=== PATIENT | male | born 1950 | race Caucasian/White ===

== ENCOUNTER 2024-05-20 14:10 | Inpatient (IN) | payer MEDICARE, OTHER ==
[~2024-05-20] VITALS: Ht 172.7 cm; Wt 77.1 kg
[2024-05-20 14:37] LABS: BASOPHILS # (AUTO) 0.1 K/UL (0.0-0.2); EOSINOPHILS # (AUTO) 0.4 K/uL (0.0-0.7); EOSINOPHILS % (AUTO) 5.1 % (0.0-7.0); HEMATOCRIT 34.3 % (36.7-47.1); HEMOGLOBIN 11.1 g/dL (12.5-16.3); LYMPHOCYTES # (AUTO) 1.1 K/uL (0.8-4.8); LYMPHOCYTES % (AUTO) 14.2 % (20.5-51.5); MEAN CORPUSCULAR HEMOGLOBIN 26.8 uug (23.8-33.4); MEAN CORPUSCULAR HGB CONC 32 g/dL (32.5-36.3); MEAN CORPUSCULAR VOLUME 83.2 fL (73.0-96.2); MONOCYTES # (AUTO) 0.7 K/uL (0.1-1.30); MONOCYTES % (AUTO) 9.4 % (0.0-11.0); NEUTROPHILS # (AUTO) 5.3 K/uL (1.8-8.9); NEUTROPHILS % (AUTO) 70.3 % (38.5-71.5); PLATELET COUNT (AUTO) 245 K/uL (152-348); RED BLOOD CELL COUNT(AUTO) 4.13 MIL/uL (4.06-5.63); RED CELL DISTRIBUTION WIDTH 16.9 % (12.1-16.2); WHITE BLOOD COUNT (AUTO) 7.5 K/uL (3.6-10.2)
[2024-05-20 14:48] LABS: DIFFERENTIAL COMMENT 1
[2024-05-20 14:50] LABS: CALCIUM 8.3 mg/dL (8.5-10.1); CARBON DIOXIDE 29 mmol/L (21-32); CHLORIDE 99 mmol/L (98-107); GLUCOSE 168 mg/dL (74-106); SODIUM SERUM 137 mmol/L (136-145); UREA NITROGEN, BLOOD 19 mg/dL (7-18)
[2024-05-20 14:56] LABS: ALANINE AMINOTRANSFERASE 17 U/L (16-63); ALBUMIN 2.9 g/dL (3.4-5.0); ALKALINE PHOSPHATASE 109 U/L (50-136); ASPARTATE AMINOTRANSFERASE 6 U/L (15-37); BILIRUBIN,DIRECT 0.2 mg/dL (0.0-0.2); BILIRUBIN,TOTAL 0.5 mg/dL (0.2-1.0); TOTAL PROTEIN, SERUM 6.4 g/dL (6.4-8.2)
[2024-05-20] MEDS ORDERED: FERR-56 PO (15:26)
[2024-05-20] MEDS ORDERED: FESO8TAB PO (15:26)
[2024-05-20] MEDS ORDERED: LINA5TAB PO (15:26)
[2024-05-20] MEDS ORDERED: FLUT1BLS15 INH (15:26)
[2024-05-20] MEDS ORDERED: METO-357 PO (15:26)
[2024-05-20] MEDS ORDERED: GABA-532 PO (15:26)
[2024-05-20] MEDS ORDERED: GLIM4TAB37 PO (15:26)
[2024-05-20] MEDS ORDERED: LEVO150T8 PO (15:26)
[2024-05-20] MEDS ORDERED: OMEP40CA21 PO (15:26)
[2024-05-20] MEDS ORDERED: TERA2CAP4 PO (15:26)
[2024-05-20] MEDS ORDERED: ALLO100T56 PO (15:26)
[2024-05-20] MEDS ORDERED: SODI10PO PO (15:26)
[2024-05-20] MEDS ORDERED: HYDR-3972 PO (15:26)
[2024-05-20] MEDS ORDERED: INSU100V10 SQ (15:26)
[2024-05-20] MEDS ORDERED: APIX2.5T PO (15:26)
[2024-05-20] MEDS ORDERED: AMLO-212 PO (15:26)
[2024-05-20] MEDS ORDERED: BUPR150T10 PO (15:26)
[2024-05-20] MEDS ORDERED: SERT100T PO (15:26)
[2024-05-20] MEDS: hydrALAZINE HCL 20 MG/1 ML VIAL IV ONE (16:50)
[2024-05-20] MEDS ORDERED: ONDANSETRON 4 MG/2 ML VIAL IV PRN (20:30)
[2024-05-20] MEDS ORDERED: ACETAMINOPHEN 325 MG TABLET PO PRN (20:30)
[2024-05-20] MEDS ORDERED: HYDROCODONE/APAP 5-325MG TABLET PO PRN (20:30)
[2024-05-20] MEDS ORDERED: TERAZOSIN 1 MG CAPSULE ONE (22:02)
[2024-05-20] MEDS ORDERED: METOPROLOL TARTRATE 50 MG TABLET ONE (22:02)
[2024-05-20] MEDS ORDERED: DOCUSATE SODIUM 100 MG CAPSULE PO ONE (22:02)
[2024-05-20] MEDS: METOPROLOL TARTRATE 50 MG TABLET PO SCH (22:09)
[2024-05-20] MEDS: GABAPENTIN 100 MG CAPSULE PO SCH (22:09)
[2024-05-20] MEDS: DOCUSATE SODIUM 100 MG CAPSULE PO SCH (22:09)
[2024-05-20] MEDS: TERAZOSIN 1 MG CAPSULE PO SCH (22:09)
[2024-05-20 22:52] VITALS: BP 113/59; TEMP 97.9; O2SAT 98
[2024-05-20] MEDS: IV 1/2NS 1000 ML 1,000 ML IV PRN (23:28)
[2024-05-20] MEDS: INSULIN REGULAR, HUMAN 300 UNIT/3 ML VIAL SQ PRN (23:31)
[2024-05-20] MEDS: INSULIN GLARGINE,HUM 300 UNITS/3 ML CARTRIDGE SQ SCH (23:32)
[2024-05-20] MEDS: BLOOD SUGAR DIAGNOSTIC 1 EACH STRIP VI SCH (23:33)
[2024-05-21] VITALS (8 sets, daily range): BP systolic 117–188; BP diastolic 48–64; TEMP 97.2–98.1; O2SAT 95–99
[2024-05-21] MEDS ORDERED: BUPR-53 PO (05:13)
[2024-05-21] MEDS: LEVOTHYROXINE SODIUM 150 MCG TABLET PO SCH (06:24)
[2024-05-21] MEDS: PANTOPRAZOLE SODIUM 40 MG TABLET.DR PO SCH (06:24)
[2024-05-21 07:28] LABS: BASOPHILS # (AUTO) 0.1 K/UL (0.0-0.2); EOSINOPHILS # (AUTO) 0.4 K/uL (0.0-0.7); EOSINOPHILS % (AUTO) 4.4 % (0.0-7.0); HEMATOCRIT 36.2 % (36.7-47.1); HEMOGLOBIN 11.7 g/dL (12.5-16.3); LYMPHOCYTES % (AUTO) 23.1 % (20.5-51.5); MEAN CORPUSCULAR HGB CONC 32 g/dL (32.5-36.3); MEAN CORPUSCULAR VOLUME 83.8 fL (73.0-96.2); MONOCYTES # (AUTO) 0.8 K/uL (0.1-1.30); MONOCYTES % (AUTO) 9.2 % (0.0-11.0); NEUTROPHILS # (AUTO) 5.5 K/uL (1.8-8.9); NEUTROPHILS % (AUTO) 62.3 % (38.5-71.5); PLATELET COUNT (AUTO) 270 K/uL (152-348); RED BLOOD CELL COUNT(AUTO) 4.32 MIL/uL (4.06-5.63); RED CELL DISTRIBUTION WIDTH 17.4 % (12.1-16.2); WHITE BLOOD COUNT (AUTO) 8.8 K/uL (3.6-10.2)
[2024-05-21 07:36] LABS: DIFFERENTIAL COMMENT 1
[2024-05-21 08:00] LABS: ALANINE AMINOTRANSFERASE 11 U/L (16-63); ALKALINE PHOSPHATASE 103 U/L (50-136); ASPARTATE AMINOTRANSFERASE 6 U/L (15-37); BILIRUBIN,TOTAL 0.6 mg/dL (0.2-1.0); CALCIUM 8.5 mg/dL (8.5-10.1); CARBON DIOXIDE 33 mmol/L (21-32); CHLORIDE 100 mmol/L (98-107); CREATININE 2.9 mg/dL (0.6-1.3); GLUCOSE 88 mg/dL (74-106); MAGNESIUM 1.8 mg/dL (1.8-2.4); NT-PRO BNP 10532 pg/mL (0-125); PHOSPHOROUS 3.6 mg/dL (2.5-4.9); POTASSIUM 4.4 mmol/L (3.5-5.1); SODIUM SERUM 137 mmol/L (136-145); TOTAL PROTEIN, SERUM 6.4 g/dL (6.4-8.2); UREA NITROGEN, BLOOD 26 mg/dL (7-18)
[2024-05-21 08:02] LABS: IRON, SERUM 44 ug/dL (50-175)
[2024-05-21 08:16] LABS: CHOLESTEROL 118 mg/dL (<200); HDL CHOLESTEROL 41 mg/dL (40-60); TRIGLYCERIDES 104 MG/DL (30-150)
[2024-05-21] MEDS: SERTRALINE HCL 100 MG TABLET PO SCH (08:42)
[2024-05-21] MEDS: buPROPion XL 150 MG TAB.SR.24H PO SCH (08:42)
[2024-05-21] MEDS: AMLODIPINE 5 MG TABLET PO SCH (08:43)
[2024-05-21] MEDS: APIXABAN 2.5 MG TABLET PO SCH (08:44)
[2024-05-21] MEDS: FLUTICASONE/VILANTEROL 1 EACH BLST.W.DEV INH SCH (08:44)
[2024-05-21] MEDS ORDERED: buPROPion SR 150 MG TABLET.SA PO SCH (09:00)
[2024-05-21] MEDS ORDERED: FLUTICASONE/SALMETEROL 250/50 INHALER INH SCH (09:00)
[2024-05-21] MEDS: CLONIDINE HCL 0.1 MG TABLET PO PRN (11:56)
[2024-05-21] MEDS ORDERED: SEVE800T7 PO (14:39)
[2024-05-21] MEDS ORDERED: CLON0.1T PO (14:39)
[2024-05-21] MEDS ORDERED: METO-358 PO (14:39)
[2024-05-21] MEDS ORDERED: ASPI81TA31 PO (14:39)
[2024-05-21] MEDS ORDERED: ATOR40TA PO (14:39)
[2024-05-21 17:11] LABS: THYROID STIMULATING HORMONE 2.1 mIU/mL (0.358-3.740)
[2024-05-21] MEDS: SEVELAMER CARBONATE 800 MG TABLET PO SCH (17:21)
[2024-05-21] MEDS: ATORVASTATIN 40 MG TABLET PO SCH (20:27)
[2024-05-21] MEDS ORDERED: INSULIN GLARGINE,HUM 300 UNITS/3 ML CARTRIDGE SQ ONE (21:10)
[2024-05-22] VITALS (7 sets, daily range): BP systolic 118–160; BP diastolic 43–64; TEMP 97.4–97.9; O2SAT 93–100
[2024-05-22] MEDS: hydrALAZINE HCL 20 MG/1 ML VIAL IV PRN (00:11)
[2024-05-22] MEDS: DEXTROSE 50% 50 ML DISP.SYRIN IV PRN (06:29)
[2024-05-22 07:15] LABS: BASOPHILS # (AUTO) 0.1 K/UL (0.0-0.2); BASOPHILS % (AUTO) 0.7 % (0.0-2.0); EOSINOPHILS # (AUTO) 0.2 K/uL (0.0-0.7); EOSINOPHILS % (AUTO) 1.5 % (0.0-7.0); HEMATOCRIT 34.5 % (36.7-47.1); HEMOGLOBIN 11.3 g/dL (12.5-16.3); LYMPHOCYTES # (AUTO) 1.4 K/uL (0.8-4.8); LYMPHOCYTES % (AUTO) 13.9 % (20.5-51.5); MEAN CORPUSCULAR HEMOGLOBIN 27.3 uug (23.8-33.4); MEAN CORPUSCULAR HGB CONC 33 g/dL (32.5-36.3); MEAN CORPUSCULAR VOLUME 83.6 fL (73.0-96.2); MONOCYTES # (AUTO) 0.8 K/uL (0.1-1.30); MONOCYTES % (AUTO) 8.5 % (0.0-11.0); NEUTROPHILS # (AUTO) 7.4 K/uL (1.8-8.9); NEUTROPHILS % (AUTO) 75.4 % (38.5-71.5); PLATELET COUNT (AUTO) 287 K/uL (152-348); RED BLOOD CELL COUNT(AUTO) 4.13 MIL/uL (4.06-5.63); RED CELL DISTRIBUTION WIDTH 16.4 % (12.1-16.2); WHITE BLOOD COUNT (AUTO) 9.9 K/uL (3.6-10.2)
[2024-05-22 07:22] LABS: CALCIUM 8.6 mg/dL (8.5-10.1); CARBON DIOXIDE 31 mmol/L (21-32); CHLORIDE 101 mmol/L (98-107); CREATININE 3.8 mg/dL (0.6-1.3); POTASSIUM 4.6 mmol/L (3.5-5.1); SODIUM SERUM 139 mmol/L (136-145); UREA NITROGEN, BLOOD 36 mg/dL (7-18)
[2024-05-22 07:23] LABS: DIFFERENTIAL COMMENT 1
[2024-05-22 07:49] LABS: GLUCOSE 48 mg/dL (74-106)
[2024-05-22] MEDS: LINAGLIPTIN 5 MG TABLET PO SCH (09:48)
[2024-05-22] MEDS: ASPIRIN EC 81 MG TABLET.DR PO SCH (09:49)
[2024-05-23 00:05] VITALS: BP 130/53; TEMP 97.6; O2SAT 95
[2024-05-23 04:00] VITALS: BP 155/56; TEMP 97.8; O2SAT 96
[2024-05-23 07:51] VITALS: BP 162/56; TEMP 97.6; O2SAT 97
[2024-05-23 11:37] VITALS: BP 156/55; TEMP 97.7; O2SAT 98
[2024-05-23 16:12] VITALS: BP 130/46; TEMP 97.8; O2SAT 98
[2024-05-23 20:45] VITALS: BP 144/46; TEMP 97.9; O2SAT 98
== END 2024-05-23 21:00 | disposition home health service (06) | DRG 640 ==
LOC: ER 14:10 → TELE3 22:01 → MEDSURG3 05-23 09:45
PROVIDERS: ADMIT Internal Medicine; ATTEND Internal Medicine
PROC: 5A1D70Z Performance of Urinary Filtration, Intermittent, Less than 6 Hours Per Day (ICD-10-PCS; principal; 2024-05-22)
DX: E87.8 Other disorders of electrolyte and fluid balance, not elsewhere classified (principal); I21.A1 Myocardial infarction type 2; N18.6 End stage renal disease; F03.93 Unspecified dementia, unspecified severity, with mood disturbance; I12.0 Hypertensive chronic kidney disease with stage 5 chronic kidney disease or end stage renal disease; R55 Syncope and collapse; Z99.2 Dependence on renal dialysis; I16.0 Hypertensive urgency; Z79.01 Long term (current) use of anticoagulants; Z79.84 Long term (current) use of oral hypoglycemic drugs; E88.09 Other disorders of plasma-protein metabolism, not elsewhere classified; E03.9 Hypothyroidism, unspecified; Z86.73 Personal history of transient ischemic attack (TIA), and cerebral infarction without residual deficits; E11.42 Type 2 diabetes mellitus with diabetic polyneuropathy; N40.0 Benign prostatic hyperplasia without lower urinary tract symptoms; F32.9 Major depressive disorder, single episode, unspecified; E11.22 Type 2 diabetes mellitus with diabetic chronic kidney disease; I48.0 Paroxysmal atrial fibrillation; Z79.899 Other long term (current) drug therapy; Z79.4 Long term (current) use of insulin; E78.5 Hyperlipidemia, unspecified; R56.9 Unspecified convulsions
CPT/HCPCS: 36415; 70450; 71045; 82746; 83550; 83735; 83921; 84100; 84443; 84484; 85025; 85610; 90937; 93005; 93307; A4606; A4663; G0378; J0360; J1815; J3490